=== PATIENT | male | born 1975 | race Caucasian/White ===

== ENCOUNTER 2019-09-27 09:33 | Emergency (ER) | payer OTHER ==
[2019-09-27 09:47] VITALS: BP 142/76; PULSE 72
[2019-09-27] MEDS ORDERED: LORazepam 2 MG/ML SDV IVPUSH ONE (09:58)
[2019-09-27] MEDS ORDERED: diphenhydrAMINE 50 MG/ML SDV IVPUSH ONE (09:58)
[2019-09-27] MEDS ORDERED: Metoclopramide 10 MG/2 ML SDV IVPUSH ONE (09:58)
[2019-09-27] MEDS ORDERED: Dextrose 5%-Lactated Ringers 1,000 ML IV SCH (10:00)
--- NOTE | 2019-09-27 10:03 | EDM.PDOC ---
ED HPI GENERAL MEDICAL PROBLEM - General Chief Complaint: Gastrointestinal Problem Stated Complaint: DIZZINESS, VOMINTING, TINGLING IN ARMS Time Seen by Provider: 09/27/19 09:48 Source of Information: Reports: Patient, Family (spouse) History Limitations: Reports: No Limitations - History of Present Illness INITIAL COMMENTS - FREE TEXT/NARRATIVE: 44-year-old male presents to the ED with his spouse. Patient has a three-day history of intermittent symptoms of vertigo but continuous vertigo since 0200 hrs. this morning with vertigo even at rest. Associated nausea and vomiting of any movement of his head at all. Vomited twice en route to the hospital in the car. Emesis is been bilious and now is more dry heaving /wretching. Has a history of vertigo twice in the past but never to this severity. HAS some degree of tinnitus and can't reported sending worse as of late. No recent sinus infection falls or closed head injuries. Did eat fairly normally yesterday. No recent alcohol use. Has taken no medications for vertigo symptoms. Patient feels that he is listing perhaps to the left side with trying to walk. Has to hang onto all objects in the home the last 2-3 days. Onset: Gradual Onset Date: 09/25/19 Duration: Day(s):, Constant (Constant symptoms of vertigo since 0200 hrs. this morning associate with nausea and vomiting if any movement of his head. He has vertigo i.e. the sense of the room spinning even at rest with his eyes closed.) , Waxing/Waning Location: Reports: Generalized (Severe vertigo even at complete rest.) Quality: Reports: Other Severity: Severe (Vertigo) Improves with: Reports: Rest Worsens with: Reports: Movement (It's a little better if he holds really still. Movement of his head or neck precipitates nausea vomiting and severe vertigo.) Context: Denies: Activity, Exercise, Lifting, Sick Contact, Trauma, Other Associated Symptoms: Reports: Loss of Appetite, Malaise, Weakness. 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.) - Related Data Allergies Allergy/AdvReac Type Severity Reaction Status Date / Time No Known Allergies Allergy Verified 09/27/19 09:48 Home Meds: Home Meds Diazepam [Valium] 5 mg PO Q12H PRN #8 tablet 09/27/19 [Rx] Metoclopramide HCl [Reglan] 10 mg PO Q8H #12 tablet 09/27/19 [Rx] Past Medical History HEENT History: Reports: Impaired Vision, Other (See Below) (Messi mary with tinnitus.) Neurological History: Reports: Vertigo (At least 2 previous events of vertigo.) Social & Family History - Living Situation & Occupation Living situation: Reports: Occupation: Employed ED ROS GENERAL - Review of Systems Review Of Systems: See Below Constitutional: Reports: Malaise, Weakness, Fatigue, Decreased Appetite. Denies : Fever, Chills HEENT: Reports: Glasses, Vertigo (Has constant tinnitus. Severe intermittent vertigo for the last 3 days but worse and constant since 0200 hrs. this morning associate with recurrent nausea and vomiting. He has a vertigo symptoms even at complete rest.), Other Respiratory: Reports: No Symptoms Cardiovascular: Reports: No Symptoms Endocrine: Reports: Fatigue (Tired from not sleeping last night.) GI/Abdominal: Reports: Nausea, Vomiting : Reports: No Symptoms (Related to movement of his head i.e. vertigo symptoms. ) Musculoskeletal: Reports: No Symptoms Skin: Reports: No Symptoms Neurological: Reports: No Symptoms Psychiatric: Reports: No Symptoms Hematologic/Lymphatic: Reports: No Symptoms Immunologic: Reports: No Symptoms ED EXAM, DIZZINESS - Physical Exam Exam: See Below Exam Limited By: No Limitations General Appearance: Alert, WD/WN, Moderate Distress, Other (He can open his eyes in a dark room and follow the light with severe nystagmus on right lateral gaze.) Eye Exam: Right Eye: Nystagmus (Sustained on right lateral gaze.), Bilateral Eye : Normal Inspection, PERRL Nystagmus: worsens with head to R, reproducible, constant Ears: Canal Material (There is cerumen impaction on the left side up against the eardrum.) Nose: Normal Inspection Throat/Mouth: Normal Inspection, Normal Lips, Normal Oropharynx, Other Head Exam: Atraumatic (Uvula is in the midline.), Normocephalic Vertigo: worsens with head to R, reproducible, constant Neck: Normal Inspection, Supple, Non-Tender, Full Range of Motion. No: Carotid Bruit, Lymphadenopathy (L), Lymphadenopathy (R), Thyromegaly Respiratory/Chest: No Respiratory Distress, Lungs Clear, Normal Breath Sounds, No Accessory Muscle Use, Chest Non-Tender Cardiovascular: Normal Peripheral Pulses, Regular Rate, Rhythm, No Edema, No Gallop, No Murmur, No Rub GI/Abdominal: Normal Bowel Sounds, Soft, Non-Tender, No Organomegaly, No Abnormal Bruit, No Mass, Pelvis Stable Neurological: Alert, Normal Mood/Affect, Normal Dorsiflexion, CN II-XII Intact, Normal Plantar Flexion, Oriented x 3, Other (Normal [id number]. No pronator drift. Normal rapid alternating movements.). No: Normal Gait, Abnormal Finger to Nose Back Exam: Normal Inspection, Full Range of Motion Extremities: Normal Inspection, Normal Range of Motion, Non-Tender, No Pedal Edema Psychiatric: Normal Affect, Normal Mood Skin Exam: Warm, Dry, Intact, Normal Color, No Rash EKG INTERPRETATION EKG Date: 09/27/19 Time: 10:16 Rhythm: NSR Rate (Beats/Min): 71 [place]: Normal P-Wave: Enlarged (Consider left atrial hypertrophy.) QRS: Other (Incomplete right bundle branch block pattern) ST-T: Other (Left ventricular hypertrophy pattern. T-wave inversion in leads 3 and aVF cannot rule out inferior wall ischemia.) QT: Normal EKG Interpretation Comments: Abnormal ECG Course - Vital Signs Last Recorded V/S: Last Vital Signs Temp 35.3 C 09/27/19 09:40 Pulse 72 09/27/19 09:40 Resp 16 09/27/19 09:40 BP 142/76 H 09/27/19 09:40 Pulse Ox 95 09/27/19 09:40 - Orders/Labs/Meds Orders: Active Orders 24 hr Category Date Time Status EKG Documentation Completion [RC] STAT Care 09/27/19 09:59 Active Ear Irrigation [RC] ASDIRECTED Care 09/27/19 10:14 Active Dextrose 5%-Lactated Ringers 1,000 ml Med 09/27/19 10:00 Active IV ASDIRECTED Medication Orders Dextrose/Lactated Ringer's (Dextrose 5%-Lactated Ringers) 1,000 mls @ 500 mls/ hr IV ASDIRECTED PRESLEY Last Admin: 09/27/19 10:15 Dose: 500 mls/hr Labs: Laboratory Tests 09/27/19 09/27/19 09/27/19 Range/Units 10:06 10:06 10:06 WBC 8.54 (4.23-9.07) K/mm3 RBC 5.37 (4.63-6.08) M/mm3 Hgb 15.6 (13.7-17.5) gm/dl Hct 45.1 (40.1-51.0) % MCV 84.0 (79.0-92.2) fl MCH 29.1 (25.7-32.2) pg MCHC 34.6 (32.2-35.5) g/dl RDW Std Deviation 43.6 (35.1-43.9) fL Plt Count 189 (163-337) K/mm3 MPV 11.9 (9.4-12.3) fl Neut % (Auto) 67.1 (34.0-67.9) % Lymph % (Auto) 23.0 (21.8-53.1) % [place] % (Auto) 7.7 (5.3-12.2) % Eos % (Auto) 1.6 (0.8-7.0) Baso % (Auto) 0.4 (0.1-1.2) % Neut # (Auto) 5.73 H (1.78-5.38) K/mm3 Lymph # (Auto) 1.96 (1.32-3.57) K/mm3 [place] # (Auto) 0.66 (0.30-0.82) K/mm3 Eos # (Auto) 0.14 (0.04-0.54) K/mm3 Baso # (Auto) 0.03 (0.01-0.08) K/mm3 Sodium 138 (136-145) mEq/L Potassium 3.6 (3.5-5.1) mEq/L Chloride 102 (98-107) mEq/L Carbon Dioxide 22 (21-32) mEq/L Anion Gap 17.6 H (5-15) BUN 13 (7-18) mg/dL Creatinine 0.9 (0.7-1.3) mg/dL Est Cr Clr Drug Dosing 100.28 mL/min Estimated GFR (MDRD) > 60 (>60) mL/min BUN/Creatinine Ratio 14.4 (14-18) Glucose 205 H (74-106) mg/dL Calcium 9.1 (8.5-10.1) mg/dL Magnesium 2.0 (1.8-2.4) mg/dl Total Bilirubin 0.5 (0.2-1.0) mg/dL AST 39 H (15-37) U/L ALT 106 H (16-63) U/L Alkaline Phosphatase 58 (46-116) U/L Troponin I < 0.017 (0.00-0.056) ng/mL C-Reactive Protein < 0.2 (<1.0) mg/dL Total Protein 7.2 (6.4-8.2) g/dl Albumin 4.2 (3.4-5.0) g/dl Globulin 3.0 gm/dL Albumin/Globulin Ratio 1.4 (1-2) TSH 3rd Generation 1.812 (0.358-3.74) uIU/mL Meds: Medications Generic Name Dose Route Start Last Admin Trade Name Freq PRN Reason Stop Dose Admin Dextrose/Lactated Ringer's 1,000 mls @ 500 mls/hr 09/27/19 10:00 09/27/19 10: 15 Dextrose 5%-Lactated Ringers IV 500 mls/hr ASDIRECTED PRESLEY Administration Discontinued Medications Generic Name Dose Route Start Last Admin Trade Name Freq PRN Reason Stop Dose Admin Diphenhydramine HCl 12.5 mg 09/27/19 09:58 09/27/19 10:21 Benadryl IVPUSH 09/27/19 09:59 12.5 mg ONETIME ONE Administration Lorazepam 1 mg 09/27/19 09:58 09/27/19 10:17 Ativan IVPUSH 09/27/19 09:59 1 mg ONETIME ONE Administration Metoclopramide HCl 10 mg 09/27/19 09:58 09/27/19 10:19 Reglan IVPUSH 09/27/19 09:59 10 mg ONETIME ONE Administration - Radiology Interpretation Free Text/Narrative:: 44-year-old male presents the ED with continuous vertigo symptoms even at rest. He exhibited intermittent vertigo symptoms off and on for the last 2 and half days. He woke at 0200 hrs. this morning with severe vertigo with associated development of nausea and vomiting. Emesis was initially contain some on partially undigested food and that has been bilious and now dry heaves. He vomited twice en route to the hospital in the car. I specifically still with his eyes closed he can almost make the vertigo go away. With eyes open he feels like the room is still spinning. Neuro exam is normal with no focal neurological deficit. CT scan of the head will be done due to persistent vertigo symptoms even at rest to make sure there is no cerebellar infarct. He has sustained nystagmus on right lateral gaze. He does have cerumen in the left ear up against his eardrum. We will irrigate his ear after he has had medication. He will be given Reglan 10 mg IV Ativan 1 mg IV and Benadryl 12.5 mg IV in the ED. Routine labs will be collected and CT had to be done. - Re-Assessments/Exams Free Text/Narrative Re-Assessment/Exam: 09/27/19 11:25 CT of the head is reported as normal. No abnormal parenchymal densities are identified. No evidence of intracranial hemorrhage no midline shift or mass effect identified. Visualized mastoid sinuses appear paranasal sinuses show nothing acute. 09/27/19 11:40: He has not been up yet but stills feels vertiginous even lying still in bed. Reported to him the normality of his CT of his head. 09/27/19 11:58 Labs reveal a normal white count at 8.54. Auto differential shows 67% neutrophils. Hemoglobin is 15.6 with hematocrit of 45.1. Platelet count is 189,000. Sodium is 138 with a potassium of 3.6. Chloride is 102 with a bicarbonate of 22. Anion gap is mildly elevated at 17.6. BUN is 13 with a creatinine of 0.9. GFR is greater than 60. Glucose is elevated at 205. Calcium is 9.1 with a magnesium of 2.0. Bilirubin is 0.5 she is 39 and ALT elevated at 106. Alk phosphatase 58. Troponin I is less than 0.017. C-reactive protein is less than 0.2. Total protein is 7.2 with an albumin fraction of 4.2. TSH is normal at 1.8. 09/27/19 12:46 left ear has been syringed and large amount of cerumen was extracted. He feels much better than he did but he is still dizzy ,especially looking to the left versus the right now. He still has mild sustained nystagmus on looking to the right.He has been up to the bathroom and did not require assistance. He appears to have a left-sided labyrinthitis or dysfunction on that side. He prefers to try things at home. I'm going to place him on Reglan 10 mg every 8 hours for 4 days and Valium 5 mg every 12 hours as needed for vertigo symptom relief. He will return if he continues to vomit and can keep down food or his medication. 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 Departure - Departure Time of Disposition: 12:47 Disposition: Home, Self-Care 01 Condition: Fair Clinical Impression: Vertigo - Discharge Information *PRESCRIPTION DRUG MONITORING PROGRAM REVIEWED*: Not Applicable *COPY OF PRESCRIPTION DRUG MONITORING REPORT IN PATIENT JONATHAN: Not Applicable Prescriptions: Diazepam [Valium] 5 mg PO Q12H PRN #8 tablet PRN Reason: vertigo relief Metoclopramide HCl [Reglan] 10 mg PO Q8H #12 tablet Instructions: Vertigo Referrals: Blanche Duval, INSURANCE ACCOUNT REPRESENTATIVE [Primary Care Provider] - Forms: ED Department Discharge, ED Return to Work/School Form Additional Instructions: Evaluation the emergency room today in regards to severe vertigo symptoms starting at 2:00 this morning but preceded by mild intermittent vertigo symptoms for the last couple of days. History of chronic tinnitus. Emanation today showed an occluded left ear canal with cerumen impaction up against her eardrum which was removed. Tests were completely normal CT of the head was within normal limits as well. Treated with intravenous Reglan 10 mg and 12.5 mg of Benadryl and Ativan 1 mg to try and bring the vertigo under control. You're still mildly vertiginous at the time of discharge particularly with looking to the left side quickly. Treatment at home is plenty of fluids but decrease things like Gatorade or Powerade as they are very similar to IV fluids and will maintain hydration. Diet should be low salt diet for the next 3 days. I Usually say no salt added to food. Treatment at home is to take Reglan tablet 10 mg every 8 hours for the next 4 days . It's tablet would be due at 4 PM today. May take Valium 5 mg tablet every 12 hours as needed for vertigo symptoms relief if they are not controlled by Reglan alone. You should be off work for the next 5-7 days until the vertigo symptoms have been completely gone for 2 days before returning to work. No provided in this regard. Turn to medical care if you develop nausea vomiting or the vertigo worsens and you need to keep down medication. Sepsis Event Note - Evaluation Sepsis Screening Result: No Definite Risk - Focused Exam Vital Signs: Vital Signs Temp Pulse Resp BP Pulse Ox 09/27/19 09:40 35.3 C 72 16 142/76 H 95 Date Exam was Performed: 09/27/19 Time Exam was Performed: 13:15 - My Orders Last 24 Hours: My Active Orders 09/27/19 09:59 EKG Documentation Completion [RC] STAT 09/27/19 10:00 Dextrose 5%-Lactated Ringers 1,000 ml IV ASDIRECTED 09/27/19 10:14 Ear Irrigation [RC] ASDIRECTED - Assessment/Plan Last 24 Hours: My Active Orders 09/27/19 09:59 EKG Documentation Completion [RC] STAT 09/27/19 10:00 Dextrose 5%-Lactated Ringers 1,000 ml IV ASDIRECTED 09/27/19 10:14 Ear Irrigation [RC] ASDIRECTED
--- NOTE | 2019-09-27 10:55 | CT ---
Head CT Technique: Multiple axial sections through the brain were obtained. Intravenous contrast was not utilized. Comparison: No prior intracranial imaging is available. Findings: Ventricles along with basal cisterns and sulci over the convexities are within normal limits for the patient's age. No abnormal parenchymal densities are seen. No evidence of intracranial hemorrhage. No midline shift or mass effect is seen. Bone window settings were reviewed which show no acute calvarial abnormality. Visualized mastoid sinuses and paranasal sinuses show nothing acute. Impression: 1. Nothing acute is appreciated on noncontrast head CT exam. Diagnostic code #1 This report was dictated in [place] Standard Time
== END 2019-09-27 13:21 | disposition home or self-care (01) ==
LOC: JD.ED 09:33
DX: R42 Dizziness and giddiness (principal)
CPT/HCPCS: 36415; 70450; 80053; 83735; 84443; 84484; 85025; 86140; 93005; 96361; 96374; 96375; 99284; J1200; J2060; J2765; J7121; 93010

== ENCOUNTER 2020-11-06 08:55 | Emergency (ER) | payer OTHER ==
[2020-11-06] MEDS ORDERED: HYDROmorphone 1 MG/ML Syringe IVPUSH ONE ×2 (10:25→13:04)
[2020-11-06] MEDS ORDERED: Metoclopramide 10 MG/2 ML SDV IVPUSH ONE (10:26)
--- NOTE | 2020-11-06 10:26 | EDM.PDOC ---
ED HPI GENERAL MEDICAL PROBLEM - General Chief Complaint: Back Pain or Injury Stated Complaint: back pain Time Seen by Provider: 11/06/20 10:20 Source of Information: Reports: Patient, Family (spouse) History Limitations: Reports: No Limitations - History of Present Illness INITIAL COMMENTS - FREE TEXT/NARRATIVE: 45-year-old male presents to the ED complaining of severe low back pain with severe intermittent muscle spasms. This pain started suddenly after choking on some water and then coughing severely after this. Therefore he tweaked or tore the muscles in his lower back and is continue to have severe pain today. Of note the coughing jag occurred yesterday morning. He did not sleep at all last night due to pain. His bowel and bladder function are normal. He gives no history of previous low back pain problems. He has taken Motrin and Tylenol at home with absolutely no effect. Onset: Sudden Onset Date: 11/05/20 Onset Time: 09:30 Duration: Day(s):, Getting Worse Location: Reports: Back Quality: Reports: Ache (Right mid and low back pain), Throbbing, Other Severity: Severe (There is spasm of paraspinal musculature 10 out of 10) Improves with: Reports: Rest Worsens with: Reports: Movement (Even deep breathing makes the pain much worse.) Context: Reports: Other (Cute onset of severe right mid and lower back pain starting after choking on some water yesterday morning and having a severe coughing jag after this. Back pain started after this and has progressively intensified over the last 36 hours). 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: Acetaminophen ( No problems with bowel or bladder function.), NSAIDS Right Middle Back Pain Score (Numeric/FACES): 5 - Related Data Allergies Allergy/AdvReac Type Severity Reaction Status Date / Time No Known Allergies Allergy Verified 11/06/20 09:01 Home Meds: Home Meds Diclofenac Sodium [Voltaren] 75 mg PO BIDMEALS #16 tab.cr 11/06/20 [Rx] clindamycin HCL [Clindamycin HCl] 300 mg PO TID #24 capsule 11/06/20 [Rx] diazePAM [Valium] 5 mg PO Q8H PRN #15 tablet 11/06/20 [Rx] oxyCODONE HCl/Acetaminophen [Percocet 10-325 mg Tablet] 1 - 2 each PO Q4H #28 tablet 11/06/20 [Rx] Past Medical History HEENT History: Reports: Impaired Vision Respiratory History: Reports: Asthma Neurological History: Reports: Vertigo Social & Family History - Family History Family Medical History: No Pertinent Family History - Tobacco Use Tobacco Use Status *Q: Never Tobacco User - Caffeine Use Caffeine Use: Reports: Coffee - Recreational Drug Use Recreational Drug Use: No - Living Situation & Occupation Living situation: Reports: Occupation: Employed Social History Comment: 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 ED ROS GENERAL - Review of Systems Review Of Systems: See Below Constitutional: Reports: Fatigue. Denies: Fever, Chills, Malaise, Weakness HEENT: Reports: Vertigo (Is a history of) Respiratory: Reports: No Symptoms Cardiovascular: Reports: No Symptoms Endocrine: Reports: No Symptoms GI/Abdominal: Reports: No Symptoms Musculoskeletal: Reports: Back Pain Skin: Reports: No Symptoms (Low back pain but never to this extent.) Neurological: Reports: No Symptoms Psychiatric: Reports: No Symptoms Hematologic/Lymphatic: Reports: No Symptoms Immunologic: Reports: No Symptoms ED EXAM,LOWER BACK PAIN/INJURY - Physical Exam Exam: See Below Exam Limited By: No Limitations General Appearance: Alert, WD/WN, Severe Distress, Other (Has to stand and hunched over for examination he cannot lay flat. He was examined in the standing position. Temperature was slightly elevated at 37.3. Heart rate is 106 in sinus respiratory days 12 BP 160/88 O2 sats 96% on room air.) Eye Exam: Bilateral Eye: Normal Inspection, PERRL Respiratory/Chest: No Respiratory Distress, Lungs Clear, Normal Breath Sounds, No Accessory Muscle Use Cardiovascular: Normal Peripheral Pulses, No Edema, No Gallop, No Murmur, No Rub, Tachycardia (Sinus tachycardia at rest.) GI/Abdominal: Normal Bowel Sounds, Soft, Non-Tender, No Organomegaly, No Mass, Pelvis Stable Back Exam: Muscle Spasm (Severe paraspinal muscle spasm appreciated on the right side of his back as compared to the left. This starts just below the inferior portion of his scapula at T6 and travels down to lumbar 3 on the right side. I could not identify point of maximal tenderness due to the severity of the muscle spasm in this area.), Other Extremities: Normal Inspection, Normal Range of Motion, Non-Tender, No Pedal Edema Neurological: Alert, Normal Mood/Affect, Normal Dorsiflexion, CN II-XII Intact, Normal Gait, Normal Reflexes Psychiatric: Normal Affect, Normal Mood Skin Exam: Warm, Dry, Intact, Normal Color Course - Vital Signs Last Recorded V/S: Last Vital Signs Temp 37.3 C 11/06/20 09:02 Pulse 93 11/06/20 13:11 Resp 12 11/06/20 09:02 BP 144/70 H 11/06/20 13:11 Pulse Ox 98 11/06/20 11:00 - Orders/Labs/Meds Orders: Active Orders 24 hr Category Date Time Status Sodium Chloride 0.9% [Normal Saline] 1,000 ml Med 11/06/20 10:30 Active IV ASDIRECTED Medication Orders Sodium Chloride (Normal Saline) 1,000 mls @ 125 mls/hr IV ASDIRECTED [facility] Last Admin: 11/06/20 10:39 Dose: 125 mls/hr Documented by: LAZARO Meds: Medications Generic Name Dose Route Start Last Admin Trade Name Freq PRN Reason Stop Dose Admin Sodium Chloride 1,000 mls @ 125 mls/hr 11/06/20 10:30 11/06/20 10:39 Normal Saline IV 125 mls/hr ASDIRECTED [facility] Administration Discontinued Medications Generic Name Dose Route Start Last Admin Trade Name Freq PRN Reason Stop Dose Admin Diazepam 5 mg 11/06/20 10:25 11/06/20 10:40 Valium IVPUSH 11/06/20 10:26 5 mg ONETIME ONE Administration Hydromorphone HCl 1 mg 11/06/20 10:25 11/06/20 10:40 Dilaudid IVPUSH 11/06/20 10:26 1 mg ONETIME ONE Administration Hydromorphone HCl 0.5 mg 11/06/20 11:34 11/06/20 11:54 Dilaudid IVPUSH 11/06/20 11:35 0.5 mg ONETIME ONE Administration Hydromorphone HCl 1 mg 11/06/20 13:04 11/06/20 13:09 Dilaudid IVPUSH 11/06/20 13:05 1 mg ONETIME ONE Administration Lorazepam 1 mg 11/06/20 11:50 11/06/20 11:56 Ativan IV 11/06/20 11:51 1 mg ONETIME ONE Administration Lorazepam Confirm 11/06/20 11:52 11/06/20 11:54 Ativan Administered 11/06/20 11:53 Not Given Dose 2 mg .ROUTE .STK-MED ONE Metoclopramide HCl 10 mg 11/06/20 10:26 11/06/20 10:40 Reglan IVPUSH 11/06/20 10:27 10 mg ONETIME ONE Administration - Radiology Interpretation Free Text/Narrative:: 45-year-old male presents to the ED with acute onset of severe low back pain primarily on the right side after choking and coughing severely 2 days ago. Pain has worsened over the last 24 hours to the point that no position is comfortable. He is did not sleep at all last night. Pain is that of severe spasm of the muscle in his right back lower back rating down to his buttock and up towards his shoulder blade on the right side. It hurts even to take a deep breath. Plan exam reveals marked paraspinal muscle spasm from thoracic 6 to lumbar 3. He will be given Dilaudid 1 mg IV and Valium 5 mg IV and Reglan 10 mg IV to reduce his pain. We will see if he will be able to lay flat after this to have imaging studies done on his lower back. - Re-Assessments/Exams Free Text/Narrative Re-Assessment/Exam: 11/06/20 11:34 Patient is still having terrible spastic pain in his back. He is able to sit on the edge of the bed but is not able to lie down yet for any imaging studies. 11/06/20 12:40 patient believes he might be able to lie flat for short period of time. I will therefore order CT scan of his thoracic and lumbar spine at this time. 11/06/20 13:[address] scans of his thoracic 6 and lumbar spines. He has grunting respirations due to the pain however. I will give him Dilaudid 1 mg IV now for further pain relief. 11/06/20 13:49 Patient reports that pain in his right back is starting to let up. CT scan of the thoracic spine reveals some mild degenerative arthritic changes at multiple levels with mild disc space narrowing noted within the cervical spine and scattered throughout the thoracic spine. Anterior osteophytes are seen within the cervical and thoracic spine. Scattered degenerative apophyseal changes noted within the thoracic spine. No fractures are identified no bony central canal stenosis is noted. Neuroforamina are felt to be fairly well patent. A small right-sided pleural effusion is evident with increased parenchymal density noted within the right lung base concerning for possible pneumonia. CT of the lumbar spine reveals age-appropriate degenerative changes with decreased disc volume particular a lumbar 3 to lumbar 5 and apophyseal degenerative change. At the teeth 12-L1 level mild disc space narrowing is seen no central canal stenosis or neuroforaminal stenosis is seen. Similar findings at L1-2 L2-L3. At L3-L4 level there is mild posterior disc space narrowing seen. Very slight circumferential disc bulge is appreciated. Posterior disc maintains a concave margin. No central canal stenosis or neuroforaminal stenosis seen. At the L4-5 level posterior disc space narrowing is seen. Slight circumferential disc bulge is noted. Minimal posterior spurring is seen. No central canal stenosis or neuroforaminal stenosis is seen. There is mild motion artifact being seen with mild degenerative apophyseal changes. At the L5-S1 level posterior disc space narrowing is seen. Put diffuse posterior disc bulge is seen with posterior spurring no central canal stenosis is noted. There is spurring and disc bulging noted into both neuroforamina which causes mild bilateral neuroforaminal stenosis. No fracture or subluxation is identified. Plan will proceed with 1 view chest x-ray to further look at the right lower lobe of his lung. 11/06/20 14:39 this x-ray does reveal a significant effusion in the right lower lung field. This is possibly occurred from aspiration of oral cavity organisms as he was drinking water when he choked and coughed violently enough to cause mild hemoptysis. I am going to therefore place the patient on clindamycin 300 mg 3 times daily for the next 8 days to cover for oral organisms and potential anaerobes. I am going to place him on Percocet 10/325 mg tablets for pain relief he is 255 pounds and very muscular. 1 to 2 tablets every 4-6 hours necessary for pain relief. [address] tablets [address] Going to place him on Valium 5 mg every 8 hours for a muscle relaxant. Voltaren 75 mg extended release twice daily for the next 8 days as well to reduce inflammation. I will give him a note to excuse him from work today and tomorrow when he is off work for the weekend. If he is not getting markedly improved he is to follow-up with Blanche Duval his primary care provider and arrange physiotherapy with deep ultrasound to the muscles to relieve spasm. Departure - Departure Time of Disposition: 14:42 Disposition: Home, Self-Care 01 Condition: Fair Clinical Impression: Paraspinal muscle spasm, Pleural effusion, Choking episode - Discharge Information *PRESCRIPTION DRUG MONITORING PROGRAM REVIEWED*: Not Applicable *COPY OF PRESCRIPTION DRUG MONITORING REPORT IN PATIENT JONATHAN: Not Applicable Prescriptions: clindamycin HCL [Clindamycin HCl] 300 mg PO TID #24 capsule oxyCODONE HCl/Acetaminophen [Percocet 10-325 mg Tablet] 1 - 2 each PO Q4H #28 tablet diazePAM [Valium] 5 mg PO Q8H PRN #15 tablet PRN Reason: Muscle spasm relief Diclofenac Sodium [Voltaren] 75 mg PO BIDMEALS #16 tab.cr Instructions: Muscle Strain, [id number], Pleural Effusion, Pain Medicine Instructions, [id number] Referrals: Blanche Duval, SERVICE [employer] WORK DISPATCHER CHIEF [Primary Care Provider] - Forms: ED Department Discharge Additional Instructions: Evaluation in the emergency room today in regards to development of severe muscle spasm right side of back from thoracic 6 level down to lumbar 3 level in your back. This occurred after drinking some cold water which precipitated a severe coughing spell and you identified that low back pain started immediately after this. You did cough severely enough to bring up some mild blood or hemop tysis. This occurred 2 days before coming to the ED. Exam reveals severe paraspinal muscle spasm in the distribution identified. You required a good deal of pain medication intravenously to allow you to be able to lay down flat for CT scan of the thoracic and lumbar spine which did not reveal any significant bony abnormalities other than some degenerative changes which would be anticipated for your age. It did however I suggest there was a collection of fluid called a pleural effusion in the bottom of your right lung. A chest x-ray confirmed that there is some fluid in the bottom your right lung and either wadded up portions of the lung which we call atelectasis or early pneumonia developing. The concern is with your severe coughing spell that you may have aspirated some organisms or bacteria from your mouth cavity or oral cavity which lodged in the bottom of your right lung. This could be setting up a pneumonia. Therefore you will be covered with antibiotic clindamycin 300 mg 3 times daily for 8 days to clear up any pneumonia that may be occurring in this area. Percocet tabs 10/325 mg 1 or 2 tablets every 4-6 hours necessary for pain relief and Valium 5 mg every 8 hours as needed for muscle spasm to be used until getting better. Also Voltaren 75 mg twice daily breakfast and supper to relieve pain and inflammation as well. If you are not markedly improved by Tuesday m nigel then I would suggest calling Benedict Johnson or seeing her in clinic with a view to arranging physiotherapy with deep muscle ultrasound to relieve some of the muscle spasm in your back until he gets back to work. An x-ray of your right lower lung needs to be done in 14 days time to make sure the pleural effusion has gone away. If not then further investigations of this area need to be done with CT of the chest. While you are on the above pain medications they will slow down your bowel function and cause constipation. Suggest picking up some MiraLAX powder at the drugstore and taking 1 scoop mixed with juice of choice once daily to prevent constipation occurrence. Sepsis Event Note (ED) - Evaluation Sepsis Screening Result: No Definite Risk - Focused Exam Vital Signs: Vital Signs Temp Pulse Resp BP Pulse Ox 11/06/20 13:11 93 144/70 H 11/06/20 11:00 98 160/70 H 98 11/06/20 10:47 100 159/86 H 95 11/06/20 09:02 37.3 C 106 H 12 160/88 H 96 - My Orders Last 24 Hours: My Active Orders 11/06/20 10:30 Sodium Chloride 0.9% [Normal Saline] 1,000 ml IV ASDIRECTED - Assessment/Plan Last 24 Hours: My Active Orders 11/06/20 10:30 Sodium Chloride 0.9% [Normal Saline] 1,000 ml IV ASDIRECTED
[2020-11-06] MEDS ORDERED: Sodium Chloride 0.9% 1,000 ML IV SCH (10:30)
[2020-11-06] MEDS ORDERED: HYDROmorphone 0.5 MG/0.5 ML Syringe IVPUSH ONE (11:34)
[2020-11-06] MEDS ORDERED: LORazepam 2 MG/ML SDV IV ONE (11:50)
[2020-11-06] MEDS ORDERED: LORazepam 2 MG/ML SDV ONE (11:52)
--- NOTE | 2020-11-06 13:40 | CT ---
CT thoracic spine Technique: Multiple axial sections were obtained through the thoracic spine. Reconstructed coronal and sagittal images were obtained. Findings: Disc space narrowing is noted within the cervical spine. Mild scattered disc space narrowing throughout the thoracic spine is seen. Anterior osteophytes are seen within the cervical and thoracic spine. Mild scattered degenerative apophyseal change is noted within the thoracic spine. No fracture is appreciated. No bony central canal stenosis is noted. Neural foramina are felt to be fairly well patent. Small right-sided pleural effusion is seen. Increased parenchymal density is noted within the right lung base. Impression: 1. Scattered degenerative change is noted. 2. Small right-sided pleural effusion and increased right-sided parenchymal density within the chest raising the possibility of pneumonia. Diagnostic code #3
--- NOTE | 2020-11-06 13:50 | CT ---
CT lumbar spine Technique: Multiple axial sections were obtained through the lumbar spine. Reconstructed sagittal and coronal images were obtained. Findings: T12-L1: Mild disc space narrowing is seen. No central canal stenosis or neural foraminal stenosis is seen. L1-2: Posterior disc is maintained. No central canal stenosis or neural foraminal stenosis is seen. L2-3: Posterior disc is preserved. No central canal stenosis or neural foraminal stenosis is seen. L3-4: Mild posterior disc space narrowing is seen. Very slight circumferential disc bulge is noted. Posterior disc maintains a concave margin. No central canal stenosis or neural foraminal stenosis is seen. L4-5: Posterior disc space narrowing is seen. Slight circumferential disc bulge is noted. Minimal posterior spurring is seen. No central canal stenosis or neural foraminal stenosis is seen. There is mild motion artifact being seen with mild degenerative apophyseal change noted. L5-S1: Posterior disc space narrowing is seen. Diffuse posterior disc bulge is seen with posterior spurring. No central canal stenosis is noted. There is spurring and disc bulging noted into both neural foramina which causes mild bilateral neural foraminal stenosis. No fracture or subluxation is seen. Impression: 1. Degenerative change as noted above. 2. Nothing acute is seen. Diagnostic code #2
--- NOTE | 2020-11-06 14:16 | CR ---
Chest: AP view of the chest was obtained. Comparison: No prior chest x-ray is available. Small right-sided pleural effusion is seen. Increased density within the right lung base is noted. Lung markings are possibly increased. Heart is felt to be within normal limits for AP technique. Bony structures are grossly intact. Impression: 1. Small right-sided pleural effusion and mild increased density of the right lung base. Density may represent atelectasis as well as pneumonia or aspiration. 2. Lung markings are slightly increased which most likely represent patient body habitus. Diagnostic code #3
[2020-11-06 15:11] VITALS: BP 150/82; PULSE 102
== END 2020-11-06 15:11 | disposition home or self-care (01) ==
LOC: JD.ED 08:55
DX: M62.830 Muscle spasm of back (principal); J90 Pleural effusion, not elsewhere classified; R09.89 Other specified symptoms and signs involving the circulatory and respiratory systems; J45.909 Unspecified asthma, uncomplicated
CPT/HCPCS: 71045; 72128; 72131; 96374; 96375; 96376; 99284; J1170; J2060; J2765; J3360; J7030

== ENCOUNTER 2024-03-20 09:24 | Day surgery (SDC) | payer OTHER ==
[~2024-03-20 09:24] MED LIST: Lactated Ringers 1,000 ML IV SCH; Sodium Chloride 0.9% 10 ML Syringe FLUSH PRN; Sodium Chloride 0.9% 10 ML Syringe FLUSH SCH
[2024-03-20] MEDS ORDERED: Ondansetron 4 MG/2 ML SDV ONE (09:35)
[2024-03-20] MEDS ORDERED: Propofol 200 MG/20 ML SDV ONE (09:36)
[2024-03-20] MEDS ORDERED: Midazolam 1 MG/ML 2 ML SDV ONE (09:36)
[2024-03-20] MEDS ORDERED: fentaNYL 100 MCG/2 ML SDV ONE (09:36)
[2024-03-20] MEDS: Lactated Ringers 1,000 ML IV SCH (10:00)
[2024-03-20 10:57] VITALS: BP 131/76; PULSE 75
== END 2024-03-20 10:57 | disposition home or self-care (01) ==
LOC: JD.SDS 09:24
PROVIDERS: ATTEND Surgery
DX: Z12.11 Encounter for screening for malignant neoplasm of colon (principal); D12.3 Benign neoplasm of transverse colon; D12.4 Benign neoplasm of descending colon; K57.30 Diverticulosis of large intestine without perforation or abscess without bleeding; K64.8 Other hemorrhoids; I10 Essential (primary) hypertension; G47.33 Obstructive sleep apnea (adult) (pediatric); E11.9 Type 2 diabetes mellitus without complications; E78.1 Pure hyperglyceridemia; E66.9 Obesity, unspecified; Z68.39 Body mass index [BMI] 39.0-39.9, adult; Z86.010 Personal history of colon polyps; Z86.711 Personal history of pulmonary embolism; Z87.891 Personal history of nicotine dependence; Z79.899 Other long term (current) drug therapy
CPT/HCPCS: 45385; J2250; J2405; J2704; J3010; J7120; 00811